=== PATIENT | female | born 1950 | race Caucasian/White ===

== ENCOUNTER 2021-10-17 10:19 | Outpatient (CLI) | payer MEDICARE, SELFPAY ==
[2021-10-17 10:39] LABS: Anion Gap 5 (5-15); BUN 26 mg/dL (7-18); BUN/Creat Ratio 25.7 RATIO (10-20); Calcium,Total 9.4 mg/dL (8.5-10.1); Chloride 104 mmol/L (98-107); Creatinine, Serum 1.01 mg/dL (0.55-1.02); EST Glomerular Filtration Rate 57 mL/min (>60); Est Glom Filt Rate - Afr Amer 69 mL/min (>60); Glucose 118 mg/dL (74-106); Potassium 4.1 mmol/L (3.5-5.1); Sodium Level 136 mmol/L (136-145)
== END 2021-10-17 23:59 | disposition home or self-care (01) ==
PROVIDERS: PCP Family Medicine; Visit Provider Nurse Practitioner
DX: C50.212 Malignant neoplasm of upper-inner quadrant of left female breast (principal); Z17.0 Estrogen receptor positive status [ER+]
CPT/HCPCS: 80048

== ENCOUNTER 2023-04-20 11:46 | Emergency (ER) | payer MEDICARE, SELFPAY ==
[2023-04-20 11:47] VITALS: BP 149/85; PULSE 97; RESP 16; TEMP 36; O2SAT 95; BMI 27.5
[2023-04-20 11:53] VITALS: BP 145/87; PULSE 99; RESP 16; O2SAT 96
--- NOTE | 2023-04-20 12:05 | CT_ITS ---
INDICATION: Headache EXAMINATION: CT BRAIN - CT Head or Brain W/O Contrast Injection TECHNIQUE: Multiple axial images were obtained of the head without intravenous contrast. A radiation dose optimization technique was used for this scan. IV Contrast dosage and agent: None. RADIATION DOSAGE (If Supplied By Facility): CTDIvol = ( 44.99 ) mGy, DLP = ( 745.49 ) mGycm COMPARISON: No prior examinations are available for comparison. FINDINGS: BRAIN PARENCHYMA: No intra- or extra-axial hemorrhage. No evidence of acute infarct. No intracranial mass or mass effect. There is preservation of the almazan/white matter interface. Posterior fossa structures are unremarkable. Mild chronic periventricular deep white matter changes likely due to microvascular disease. CSF SPACES: Prominent ventricles and cortical sulci consistent with mild atrophy. No hydrocephalus. Basal cisterns are patent. CALVARIUM, SKULL BASE, PARANASAL SINUSES AND MASTOID AIR CELLS: Mild mucosal thickening of the maxillary sinuses. No discrete lytic or blastic abnormalities. ORBITS: Both globes, extraocular muscles, optic nerves and retrobulbar fat appear unremarkable. ASPECTS Score for Acute Strokes: 10 CT/Brain/Head without Contrast IMPRESSION: 1. No acute intracranial process. 2. Chronic involutional changes of the brain. Electronically Signed: Mohan Wood MD at 13:13 EDT ,
[2023-04-20 12:19] LABS: Absolute Neutrophil Count 5.7 X10^3/uL (2.0-7.7); Basophil# 0.04 X10^3/uL; Basophil% 0.6 % (0-1); Hemoglobin 15.6 g/dL (12.0-15.0); Mean Corp Hgb Conc 32.5 g/dL (32-36); Mean Corpuscular Hgb 28.4 pg (27.0-32.0); Mean Corpuscular Volume 87.4 fL (81-99); Mean Platelet Vol. 10.1 fl (6.2-12.0); Monocyte# 0.28 X10^3/uL; Monocyte% 4.2 % (0-10); NRBC Flagged by Analyzer 0 % (0-5); Neutrophil # 5.72 X10^3/uL (2.7-7.7); Neutrophil % 85.3 % (47-70); POSITIVE DIFFERENTIAL YES; Platelet Count 263 K/mm3 (150-450); RBC Distribution Width CV 12.9 % (11.6-14.6); RBC Distribution Width SD 41.4 fl (35.1-43.9); Red Blood Count 5.49 M/mm3 (4.2-5.4); White Blood Count 6.7 K/mm3 (4.4-11.0)
[2023-04-20 12:22] LABS: Differential Indicated SCAN CRITERIA MET
[2023-04-20] MEDS: 0.9% Normal Saline 1,000 ML 1000 ML IV (12:26)
[2023-04-20] MEDS: diazePAM 5 MG Tablet 2.5 MG PO (12:26)
[2023-04-20] MEDS: Ondansetron 4 MG/2 ML Vial IV (12:27)
[2023-04-20 12:40] LABS: Anion Gap 5 (5-15); BUN 14 mg/dL (7-18); BUN/Creat Ratio 15.2 RATIO (10-20); Calcium,Total 9.6 mg/dL (8.5-10.1); Chloride 107 mmol/L (98-107); Creatinine, Serum 0.92 mg/dL (0.55-1.02); EST Glomerular Filtration Rate 63 mL/min (>60); Est Glom Filt Rate - Afr Amer 76 mL/min (>60); Estimated Creatinine Clearance 46.33 ml/min; Glucose 154 mg/dL (74-106); Potassium 3.8 mmol/L (3.5-5.1); Sodium Level 137 mmol/L (136-145); Troponin-I HS < 3 pg/mL (3.0-54.0)
--- NOTE | 2023-04-20 12:56 | ED.RN ---
Up to bathroom, returned to bed.
[2023-04-20 13:07] LABS: Mucous, Urine 0 SEEN /hpf (<or=2+)
--- NOTE | 2023-04-20 13:20 | EDS_ITS ---
HPI History of Present Illness Chief Complaint: General Illness Onset/Context/Timing Onset: Yesterday Context: Gradual Onset Timing: Continuous Quality: Like she is riding on waves Location: Generalized Worsened by: Closing her eyes Relieved by: Nothing Narrative Narrative: Patient presents with dizziness and nausea that began yesterday. Patient was seen by urgent care and was given a prescription for amoxicillin for possible left ear infection. Patient states her symptoms have gradually gotten worse. Patient states she feels like she is writing on waves. Patient states it is worse when she closes her eyes. Patient states she had a COVID-19 test yesterday which was negative. Patient does admit to a cough. Patient admits to a low-grade fever of 100 at home. Patient admits to some nausea and vomiting. Patient denies any hematemesis or coffee-ground emesis. PFSH PFS Medical History Breast cancer Hx of radiation therapy Home Medications exemestane 25 mg tablet mg PO 03/13/23 [History Last Taken Unknown] losartan 100 mg tablet mg PO 03/13/23 [History Last Taken Unknown] meloxicam 15 mg tablet 15 mg PO DAILY Pain #30 tabs 03/13/23 [Rx Last Taken Unknown] rosuvastatin 5 mg tablet mg PO 03/13/23 [History Last Taken Unknown] diazepam 2 mg tablet 2 mg PO TID PRN PRN Vertigo #10 TABLETS 04/20/23 [Rx Last Taken Unknown] ondansetron 4 mg disintegrating tablet 4 mg PO Q8H PRN PRN Nausea #10 tabs 04/20/23 [Rx Last Taken Unknown] Allergy/AdvReac Type Severity Reaction Status Date / Time Iodinated Contrast Media Allergy Hives Verified 01/12/17 10:49 [DYEE] lisinopril Allergy Hives Verified 01/12/17 10:49 AUGMENTIN AdvReac Mild LEG PAIN Uncoded 04/20/23 11:47 Surgical History Hx of left mastectomy Hx of lumpectomy Hx of lymph node excision Social History Smoking Status: Never smoker ROS ROS ED Constitutional Constitutional ED: Reports fever(s); Denies chills Eyes Eyes: Denies blurry vision or change in vision ENT ENT ED: Denies rhinorrhea or sore throat Cardiovascular Cardiovascular: Denies chest pain or palpitations Respiratory/Chest Respiratory/Chest: Reports cough; Denies dyspnea Gastrointestinal Gastrointestinal: Reports nausea and vomiting Genitourinary Genitourinary ED: Denies dysuria or hematuria Musculoskeletal Musculoskeletal: Denies back pain or neck pain Integumentary Denies abscess or rash Neurologic Neurologic: Reports headache(s); Denies weakness Allergic/Immunologic Allergic/Immunologic ED: Denies mouth swelling or urticaria EXAM Physical Exam Const Vital Signs: 04/20/23 11:47 04/20/23 11:53 04/20/23 11:53 Temperature 96.8 F L Temperature Source Temporal Pulse Rate 97 99 Respiratory Rate 16 16 Respiratory Pattern Normal Blood Pressure 149/85 H 145/87 H Blood Pressure Mean 106 106 Pulse Ox 95 96 Oxygen Delivery Method Room Air Positive well nourished and well developed General Appearance ED: well developed and NAD HEENT Reports TM's clear and moist mucous membranes HEENT Narrative: Oropharynx is clear. There are no exudates noted. Tympanic Membrane ED: Yes TM's clear bilateral Eyes PERRL and EOMs intact bilaterally Eyes Narrative: There is mild nystagmus with right lateral gaze. Neck supple and no JVD Resp normal respiratory effort and clear to auscultation bilaterally Cardio regular rate, regular rhythm and no murmurs GI normal to inspection, nondistended, normoactive bowel sounds and non-tender Palpation: soft Extremity normal to inspection General Extremety ED: Negative for edema or tenderness General Extremity: Negative for edema Neuro oriented x3, CN's II-XII intact bilaterally and no sensory deficits noted Sensorium / Orientation: alert Motor Exam: strength 5/5 throughout Psych mental status grossly normal Skin no rashes or lesions noted MDM MDM MDM Narrative Medical decision making narrative: Differential diagnosis includes vertigo, labyrinthitis, stroke, intracranial bleeding, anemia, electrolyte abnormality, dehydration, cardiac dysrhythmia, cardiac ischemia, urinary tract infection, and viral illness. CT scan of the brain will be obtained to assess for stroke or intracranial bleeding. EKG will be obtained to assess for cardiac dysrhythmia and cardiac ischemia. CBC will be obtained to assess for anemia and leukocytosis. Basic metabolic profile will be obtained to assess for electrolyte abnormality and renal function. High- sensitivity troponin will be obtained to assess for cardiac ischemia. Urinalysis will be obtained to assess for urinary tract infection. Lab Data Attestation: I reviewed the patient's lab results. Lab results narrative: CBC was reviewed. Hemoglobin was slightly elevated at 15.6 and hematocrit is 48.0. Profile was reviewed. Glucose was slightly elevated at 154. The remainder is within normal limits. High-sensitivity troponin was reviewed and was normal at less than 3. Urinalysis was reviewed. There is no evidence of urinary tract infection. Labs: Laboratory Results - last 24 hr 04/20/23 04/20/23 11:59 13:02 WBC 6.7 RBC 5.49 H Hgb 15.6 H Hct 48.0 H MCV 87.4 MCH 28.4 MCHC 32.5 RDW Std Deviation 41.4 RDW Coeff of Juliann 12.9 Plt Count 263 MPV 10.1 Immature Gran % (Auto) 0.900 Neut % (Auto) 85.3 H Lymph % (Auto) 9.0 L [place] % (Auto) 4.2 Eos % (Auto) 0.0 Baso % (Auto) 0.6 Absolute Neuts (auto) 5.7 Absolute Lymphs (auto) 0.60 L Nucleated RBC % 0 Differential Comment COMMENT Sodium 137 Potassium 3.8 Chloride 107 Carbon Dioxide 25.0 Anion Gap 5 BUN 14 Creatinine 0.92 Estim Creat Clear Calc 46.33 Est GFR (MDRD) Af Amer 76 Est GFR (MDRD) Non-Af 63 BUN/Creatinine Ratio 15.2 Glucose 154 H Calcium 9.6 Troponin I High Sens < 3 L Urine Color Yellow Urine Clarity Clear Urine pH 6.0 Ur Specific [place] 1.025 Urine Protein 30 H Urine Glucose (UA) Normal Urine Ketones 50 H Urine Occult Blood 50 H Urine Nitrite Negative Urine Bilirubin Negative Urine Urobilinogen Normal Ur Leukocyte Esterase 25 H Urine RBC 0-5 SEEN Urine WBC 0 SEEN Ur Squamous Epith Cells 0-5 SEEN Urine Bacteria RARE Urine Mucus 0 SEEN Radiography Diagnostic Testing: Clinical Impression(s) from Imaging Studies Brain CT 04/20/23 12:05 IMPRESSION: 1. No acute intracranial process. 2. Chronic involutional changes of the brain. Electronically Signed: Mohan Wood MD at 13:13 EDT , CT scan of the brain was obtained. There is no acute intracranial abnormality. There are chronic involutional changes noted. This was interpreted by the radiologist and was also independently reviewed by myself. EKG Initial EKG: Attestation: I personally reviewed and interpreted this EKG as follows: Interpretation: No Acute Injury Pattern and Sinus Tachycardia (103) Comments: EKG was obtained. On my independent interpretation, it showed a sinus tachycardia with a rate of 103. NH interval, QRS interval, and QTc intervals were all normal. [place] was normal. There are no acute ST or T wave changes. Prior EKG tracings: available for review Prior: Unchanged (06/01/2010) Treatment and Re-Evaluation :: Patient was given a dose of Valium here. Patient is feeling better on reevaluation. Patient was advised of her findings. Patient was given prescriptions for Zofran and Valium to take at home. Patient was instructed to follow-up with her primary care physician in 5 to 7 days. Patient understood and was agreeable with the plan. All questions were answered. Discharge Plan Triage Chief Complaint: General Illness ED Provider: Nate Robles Dx/Rx/DC Orders Clinical Impression: Vertigo, HTN (hypertension) Instructions: ED Vertigo, Unspecified Prescriptions: New diazepam [diazepam] 2 mg tablet 2 mg PO TID PRN PRN (Reason: Vertigo) Qty: 10 0RF ondansetron [ondansetron] 4 mg tablet,disintegrating 4 mg PO Q8H PRN PRN (Reason: Nausea) Qty: 10 0RF No Action rosuvastatin 5 mg tablet PO exemestane 25 mg tablet PO losartan 100 mg tablet PO meloxicam 15 mg tablet 15 mg PO DAILY Qty: 30 0RF Rx Instructions: Do not take in conjunction with other NSAIDs. Tylenol is okay. Primary Care Provider: Anastacio Santana Referrals: Anastacio Santana MD [Primary Care Provider] - 5-7 Days Disposition Disposition: Home, Self Care
[2023-04-20 13:26] LABS: Color, Urine Yellow (Yellow); Glucose, Dipstick Normal (Normal); Ketone-Dipstick 50 mg/dl (Negative); Leukocyte Esterase-Dipstick 25 /ul (Negative); Nitrite-Dipstick Negative (Negative); Occult Blood-Urine 50 /ul (Negative); Protein-Dipstick 30 mg/dl (Negative); Specific Gravity, Urine 1.025 (1.002-1.030); Urine Bilirubin Dipstick Negative (Negative); Urine Clarity Clear (Clear); Urine Urobilinogen Normal (Normal)
[2023-04-20 13:39] LABS: Bacteria RARE /hpf (None Seen); Red Blood Cells-Urine 0-5 SEEN /hpf (0-5); Squamous Epithelial Cells - UA 0-5 SEEN /hpf (5-10); White Blood Cells 0 SEEN /hpf (0-5)
== END 2023-04-20 14:29 | disposition home or self-care (01) ==
PROVIDERS: Emergency Provider Emergency Medicine; PCP Family Medicine; Visit Provider Emergency Medicine
DX: R42 Dizziness and giddiness (principal); I10 Essential (primary) hypertension
CPT/HCPCS: 70450; 80048; 81001; 84484; 85025; 93005; 96361; 96374; 99284; J7030; A4216; J2405

== ENCOUNTER → 2023-08-26 | Outpatient (CLI) | payer MEDICARE, SELFPAY ==
[2023-08-26 16:33] LABS: CRP < 2.90 mg/L (0.0-3.0)
[2023-08-28 15:08] LABS: Endomysial Antibody IgA Negative (Negative); Immunoglobulin A 200 mg/dL (64-422); t-Transglutaminase IgA <2 U/mL (0-3)
== END | disposition home or self-care (01) ==
LOC: MTLAB 12:41
PROVIDERS: PCP Family Medicine; Referring Provider Internal Medicine Gastroenterology; Visit Provider Internal Medicine Gastroenterology
DX: R19.7 Diarrhea, unspecified (principal)
CPT/HCPCS: 36415; 82784; 83516; 86140; 86255

== ENCOUNTER 2025-07-26 14:30 | Outpatient (RCR) | payer MEDICARE, SELFPAY ==
--- NOTE | 2025-06-05 07:42 | HP.PTEVAL_ITS ---
Patient's Visit Information Visit Information Visit Information: PALMIRA VAZQUEZ is a 75 year old F referred to Physical Therapy by SONYA Jeff with a diagnosis of polyarthralgia. Date of Evaluation: 06/02/25 Physical Therapist: CHRISTIANO BoldenT, OCS, CSCS Visit Plan Frequency: 1-2x /Week Duration: 6 Weeks Plan: 1-2x/wk for 6 wks. Pt would like to start with 2x/wk and decrease to 1x wk to focus on HEP. Initiate LE/core flexibility/strengthening exercises and functional mvmt pattern training to decrease global stiffness to allow pt to complete squatting tasks for gardening and reaching into fridge without difficulty. Pt has limited endurancee, would likely benefit from aquatic therapy but would like to see her tolerance to land therapy prior to trying aquatic therapy. POC transferred to staff PT post evaluation. Subjective Subjective: Pt is 75 y.o. female referred to physical therapy for polyarthralgia by Jessica Hardin NP 2x breast CA survivor, s/p L mastectomy in 2019 with repeated treatment of estrogen inhibitors that pt attributes to current symptoms. Pt complaints of generalized decreased endurance and freedom of mvmt. Reports generalized joint pain that varies from joint to joint but notes her main complaint is stiffness vs pain. Symptoms worse in am, better after moving around 1 hr. Sitting irma ance 1 hr. due to stiffness. Walking tolerance ~ 1 mile. Reports global stiffness resulting in increased difficulty with squatting (unable to weed garden), increased time needed for dressing tasks, difficulty picking up object off of floor, fatigues with overhead activity. Denies difficulty with steps stating she completes about 12 flights weekly with rail assist. Pt's goal: Wants to regain mobility and have less stiffness and decreased joint stiffness Has been doing morning stretches (overhead reaching, 3 steps at a time with rail, lunges) and uses posture brace or heat with good relief for back stiffness). Pt would benefit from skilled therapy in order to reduce global stiffness and restore normal mvmt patterns for greater ease with squatting tasks for gardening, reaching into fridge, and ADL tasks. Objective Objective: Posture: L shift noted in standing and L sidebend noted in sitting with decreased lumbar lordosis, forward rounded shoulders and protracted scapula. Guarded with overhead reaching with L UE despite WFL due to prior L mastectomy. Rigid with mvmt, all planes. Significantly limited L/s Flexion/ext. Decreased L trunk rotation noted in sitting/supine. Bilat hip, knee and ankle AROM WFL. Mod restriction: bilat hamstrings, quads (R>L). Bilat hip flexion 4-/5, bilat hip ext 4-/5 (modified position). Squat limited to 84 deg knee flexion. Balance/Special Test Scores Lower Extremity Functional Score: 41 TUG Test Time Seconds: 13.6 30 Second Chair Rise Test Seconds: 11 Goals Goal 1:: Improve TUG score to under 10 to decrease fall risk with mobility task. Goal Time Frame: 4-6 Weeks Goal 2:: Improve LE strength to WFL to allow pt to squat to complete garden tasks without difficulty. Goal 3:: Pt will demonstrate adequate bilat LE strength in order to complete floor to stand transfers without difficulty. Goal Time Frame: 4-6 Weeks Goal 4:: Pt will be indep with HEP to restore flexibility and strength in order to regain normal mvmt patterns with daily tasks. Goal Time Frame: 4-6 Weeks Goal 5:: Pt will report no difficulty with picking up objects off of floor. Goal Time Frame: 4-6 Weeks Rehabilitation Potential Physical Therapy Diagnosis: generalized weakness Rehabilitation Potential: Good Anticipated Interventions Patient/Client Instruction: Educate patient on: Condition and Plan of Care For the Purpose of:: To decrease pain, To increase ROM, To improve ability to perform ADL's, To improve ability of physical actions for home/community/work/leisure, To increase flexibility/ROM, To improve endurance, To improve balance, To improve safety and To improve tolerance to ADL's Therapeutic Exercise to Include: Strength training, Balance training, Body mechanics, Postural training, Flexibilty training, Active ROM, Dynamic Lumbar Stabilization and Scapular Strength/Stabilization Comment: Would like more global functional mvmts to incorporate many joints at one time. For the Purpose of:: To increase ROM, To improve ability to perform ADL's, To improve ability of physical actions for home/community/work/leisure, To increase flexibility/ROM, To improve endurance, To foster healthy habits and To improve tolerance to ADL's Functional Training to Include: Functional home training Comments: floor to stand transfers For the Purpose of:: To improve ability to perform ADL's, To increase tolerance to activity/condition/position, To improve balance and To improve safety Text: Thank you for the opportunity to evaluate your patient. For Medicare and Medicare HMO plans, please review the plan of care and approve it. It will need to be FAXED BACK to us at [phone] for Medicare purposes. For Medicare only, by signing this I certify the plan of care. Please let me know if there are questions or concerns regarding this plan of care. Physician Signature: Date:
--- NOTE | 2025-07-04 16:01 | HP.PTREVAL_ITS ---
Re-Evaluation Intro: Irina Hardin, KERRI-C, It has been my pleasure to treat PALMIRA VAZQUEZ over the last 8 visits for polyarthralgia. Please see the progress note below for an update on the physical therapy plan of care! Subjective Subjective: Pt. reports overall doing well, but still feels weak. She is also complaining of L shoulder tightness. Objective Objective/Function: Pt. has good ROM in BLEs, slight tightness in her L lats. Pt. is able to complete floor transfers with use of BUEs, but unable to complete without us of UEs. Pt. has some weakness in BUEs as well. GAIT: fairly normal without use of AD. Pt. describes a general weakness throughout BUEs and BLEs. TU sec Plan Plan Plan: I am extending her POC with focus on BUE and BLE strengthening. Pt. wants to be able to rise from ground without use of UEs as she does gardening, in case she falls. Balance/Gait/Functional tests Balance/Special Test Scores Lower Extremity Functional Score: 41 TUG Test Time Seconds: 13.6 Tug Test: <20 sec.=mostly independent 30 Second Chair Rise Test Seconds: 11 Goals Goals Goal 1:: Improve TUG score to under 10 to decrease fall risk with mobility task. Goal Time Frame: 4-6 Weeks Goal Progress: Goal Met Goal 2:: Improve LE strength to WFL to allow pt to squat to complete garden tasks without difficulty. Goal Progress: Progressing Goal 3:: Pt will demonstrate adequate bilat LE strength in order to complete floor to stand transfers without difficulty. Goal Time Frame: 4-6 Weeks Goal Progress: Progressing Goal 4:: Pt will be indep with HEP to restore flexibility and strength in order to regain normal mvmt patterns with daily tasks. Goal Time Frame: 4-6 Weeks Goal Progress: Progressing Goal 5:: Pt will report no difficulty with picking up objects off of floor. Goal Time Frame: 4-6 Weeks Goal Progress: Goal Met Anticipated Interventions Anticipated Interventions Patient/Client Instruction: Educate patient on: Condition and Plan of Care For the Purpose of:: To decrease pain, To increase ROM, To improve ability to perform ADL's, To improve ability of physical actions for home/comm unity/work/leisure, To increase flexibility/ROM, To improve endurance, To improve balance, To improve safety and To improve tolerance to ADL's Therapeutic Exercise to Include: Strength training, Balance training, Body mechanics, Postural training, Flexibilty training, Active ROM, Dynamic Lumbar Stabilization and Scapular Strength/Stabilization Comment: Would like more global functional mvmts to incorporate many joints at one time. For the Purpose of:: To increase ROM, To improve ability to perform ADL's, To improve ability of physical actions for home/community/work/leisure, To increase flexibility/ROM, To improve endurance, To foster healthy habits and To improve tolerance to ADL's Functional Training to Include: Functional home training Comments: floor to stand transfers For the Purpose of:: To improve ability to perform ADL's, To increase tolerance to activity/condition/position, To improve balance and To improve safety Re-Evaluation Ending Re-evaluation ending: Please do not hesitate to contact me at [phone] by phone or if you have questions or concerns regarding this new plan of care! Sincerely, Edil Cabrera DPT
--- NOTE | 2025-07-26 15:24 | HP.PTDCSUM ---
Discharge Summary D/C summary: It has been my pleasure to treat PALMIRA VAZQUEZ referred by SONYA Jeff, with the diagnosis of polyarthralgia for a total of 17 visit(s). Discharge Date: 07/26/25 Please see the following information for a summary of their discharge status. Subjective Subjective: Pt. reports overall doing well. Pt. reports being 85% better overall. No pain noted today. Pt. is grateful to be able to be able to get up off the floor without issues. Pt. pleased. She has HEP and is being HEP compliant. Pain L side: Pain Intensity (Out of 10): 0 Overall Improvement % Improvement: 85 Objective Objective/Function: ROM: Pt. has full ROM of B shoulder and hips. pt. has close to full ROM of lumbar spine no increase in symptoms. Pt. has 5/5 strength throughout BLE and B shoulders. She is able to complete floor transfers without increase in symptoms without use of external source to stability. Pt. is overall doing well. She will be DC from PT at this point in time as she has met all goals. Goals Goal 1:: Improve TUG score to under 10 to decrease fall risk with mobility task. Goal Progress: Goal Met Goal 2:: Improve LE strength to WFL to allow pt to squat to complete garden tasks without difficulty. Goal Progress: Goal Met Goal 3:: Pt will demonstrate adequate bilat LE strength in order to complete floor to stand transfers without difficulty. Goal Progress: Goal Met Goal 4:: Pt will be indep with HEP to restore flexibility and strength in order to regain normal mvmt patterns with daily tasks. Goal Progress: Goal Met Goal 5:: Pt will report no difficulty with picking up objects off of floor. Goal Progress: Goal Met Plan Plan: I am extending her POC with focus on BUE and BLE strengthening. Pt. wants to be able to rise from ground without use of UEs as she does gardening, in case she falls. D/C Information d/c sentence: If there are questions or concerns regarding this patient's physical therapy, please feel free to call me at [phone]. Thank you for the referral of this patient. Sincerely, Edil Downs Sipos, DPT Balance/Gait/Functional tests Balance/Special Test Scores Lower Extremity Functional Score: 62 TUG Test Time Seconds: 13.6 Tug Test: <20 sec.=mostly independent 30 Second Chair Rise Test Seconds: 11 Improvement % Improvement: 85
== END 2025-07-26 19:00 | disposition home or self-care (01) ==
LOC: PT 14:30
PROVIDERS: PCP Family Medicine; Referring Provider Registered Nurse; Visit Provider Registered Nurse
DX: M25.50 Pain in unspecified joint (principal)
CPT/HCPCS: 97110; 97161; 97530